=== PATIENT | male | born 1935 | race Caucasian/White ===

== ENCOUNTER 2016-07-24 08:05 | Outpatient (CLI) | payer MEDICARE, BC | END 2016-07-24 08:06 | disposition home or self-care (01) | DX: E78.5 Hyperlipidemia, unspecified (principal); R73.9 Hyperglycemia, unspecified; Z12.5 Encounter for screening for malignant neoplasm of prostate | CPT/HCPCS: 36415; 80053; 80061; G0103 ==

== ENCOUNTER 2016-12-09 13:55 | Outpatient (CLI) | payer MEDICARE, BC | END 2016-12-09 13:56 | disposition home or self-care (01) | LOC: DI 13:55 | PROVIDERS: ATTEND Family Medicine | DX: R00.1 Bradycardia, unspecified (principal); I51.7 Cardiomegaly; I77.819 Aortic ectasia, unspecified site | CPT/HCPCS: 93306 ==

== ENCOUNTER 2016-12-28 10:55 | Outpatient (CLI) | payer MEDICARE, BC ==
[2016-12-28 11:39] LABS: CREATININE 0.8 mg/dL (0.6-1.2)
[2016-12-28] MEDS ORDERED: IOPAMIDOL-300 100 ML VIAL IVP ONE (12:16)
--- NOTE | 2016-12-28 13:26 | CT Report ---
CT OF CHEST ANGIOGRAM AORTA: 12/28/2016 CLINICAL INDICATION: Abnormal aorta on echocardiography. TECHNIQUE: Axial CT images of the chest were obtained with 100 mL of Isovue-300 intravenously. Sagitt al and coronal 3D reconstructions were performed. FINDINGS: The heart and great vessels demonstrate atherosclerotic calcification. There is mild ectas ia of the ascending thoracic aorta. The aorta at the sinotubular junction measures 3.3 x 3.2 cm. The ascending aorta at the level of the main pulmonary artery measures 4.4 x 4.0 cm. The thoracic aorta a t the arch measures 3.1 x 2.9 cm. The descending thoracic aorta at the level of the main pulmonary ar keshawn measures 3.6 x 3.1 cm. No hilar or mediastinal lymphadenopathy is present. There is a moderate h iatal hernia. The lungs demonstrate mild dependent atelectasis. There is a noncalcified 4 mm nodule i n the right middle lobe (lung windows axial image 88). No effusion or pneumothorax is present. Limite d evaluation of upper abdominal structures demonstrates normal adrenal glands. The osseous structures demonstrate degenerative changes. IMPRESSION: MILD ECTASIA OF THE THORACIC AORTA, WITHOUT MACI ANEURYSMAL DILATATION. MODERATE HIATAL HERNIA. A 4 MM NODULE IN THE RIGHT MIDDLE LOBE. In accordance with CT protocol optimization, one or more of the following dose reduction techniques w ere utilized for this exam: automated exposure control, adjustment of mA and/or KV based on patient size, or use of iterative reconstructive technique. JOB #: [id number] EXT JOB #:[id number]
== END 2016-12-28 10:56 | disposition home or self-care (01) ==
LOC: LAB 10:55
PROVIDERS: ATTEND Family Medicine
DX: I77.810 Thoracic aortic ectasia (principal); K44.9 Diaphragmatic hernia without obstruction or gangrene; R91.1 Solitary pulmonary nodule
CPT/HCPCS: 36415; 71275; 80048; Q9967

== ENCOUNTER 2017-10-26 12:00 | Outpatient (CLI) | payer MEDICARE, BC ==
--- NOTE | 2017-10-26 14:28 | CT Report ---
CT CHEST WITHOUT CONTRAST: 10/26/2017 CLINICAL INDICATION: Followup pulmonary nodule. COMPARISON: 12/28/2016. TECHNIQUE: Axial CT images of the chest were obtained without intravenous contrast. FINDINGS: The heart and great vessels again demonstrate atherosclerotic calcifications. No hilar or mediastinal lymphadenopathy is appreciated. Moderate hiatal hernia is stable. The 4 mm nodule in the lateral right middle lobe is unchanged (axial image 38). No new pulmonary nodule or mass lesion is seen. No effusion or pneumothorax is present. Osseous structures demonstrate degenerative changes. Limited evaluation of upper abdominal structures demonstrates normal adrenal glands. IMPRESSION: STABLE 4 MM NODULE IN THE LATERAL RIGHT MIDDLE LOBE. CT DOSE REDUCTION STATEMENT In accordance with CT protocol optimization, one or more of the following dose reduction techniques were utilized for this exam: automated exposure control, adjustment of mA and/or KV based on patient size, or use of iterative reconstructive technique. TD: 10/26/2017 14:26
== END 2017-10-26 12:01 | disposition home or self-care (01) ==
LOC: DI 12:00
PROVIDERS: ATTEND Family Medicine
DX: R91.1 Solitary pulmonary nodule (principal)
CPT/HCPCS: 71250

== ENCOUNTER 2017-11-02 09:40 | Outpatient (CLI) | payer MEDICARE, BC ==
[2017-11-02 13:19] LABS: ALBUMIN/GLOBULIN RATIO 1.5 (1.0-2.2); BILIRUBIN,TOTAL 0.7 mg/dL (0.2-1.0); CALCIUM 8.8 mg/dL (8.5-10.3); CREATININE 0.5 mg/dL (0.6-1.2); TOTAL PROTEIN 6.6 g/dL (6.7-8.2)
== END 2017-11-02 09:41 | disposition home or self-care (01) ==
LOC: LAB.WCP 09:40
PROVIDERS: ATTEND Family Medicine
DX: E78.5 Hyperlipidemia, unspecified (principal)
CPT/HCPCS: 36415; 80053

== ENCOUNTER 2017-11-18 09:33 | Outpatient (CLI) | payer MEDICARE, BC ==
[2017-11-18 13:33] LABS: CALCIUM 8.8 mg/dL (8.5-10.3); CREATININE 0.8 mg/dL (0.6-1.2)
== END 2017-11-18 09:34 | disposition home or self-care (01) ==
LOC: LAB.WCP 09:33
PROVIDERS: ATTEND Family Medicine
DX: Z79.899 Other long term (current) drug therapy (principal)
CPT/HCPCS: 36415; 80048

== ENCOUNTER 2017-12-28 08:00 | Outpatient (CLI) | payer MEDICARE, BC ==
[2017-12-28 13:11] LABS: BASOPHILS % (AUTO) 0.4 %; EOSINOPHILS # (AUTO) 0.1 10^3/uL (0.0-0.7); EOSINOPHILS % (AUTO) 1.7 %; HGB - HEMOGLOBIN 13.5 g/dL (14.0-18.0); LYMPHOCYTES # (AUTO) 1.4 10^3/uL (1.5-3.5); LYMPHOCYTES % (AUTO) 27.8 %; MEAN CORPUSCULAR HEMOGLOBIN 31.8 pg (27.0-31.0); MEAN CORPUSCULAR HGB CONC 34.2 g/dL (32.0-36.0); MEAN PLATELET VOLUME 7.8 fL (7.4-11.4); MONOCYTES # (AUTO) 0.4 10^3/uL (0.0-1.0); MONOCYTES % (AUTO) 8.6 %; NEUTROPHILS # (AUTO) 3.2 10^3/uL (1.5-6.6); NEUTROPHILS % (AUTO) 61.5 %; PLT - PLATELET COUNT 224 10^3/uL (130-450); RED BLOOD COUNT 4.25 10^6/uL (4.70-6.10); RED CELL DISTRIBUTION WIDTH 14.8 % (12.0-15.0); WHITE BLOOD COUNT 5.2 x10^3/uL (4.8-10.8)
[2017-12-28 13:26] LABS: ALBUMIN 3.6 g/dL (3.2-5.5); ALBUMIN/GLOBULIN RATIO 1.2 (1.0-2.2); ALKALINE PHOSPHATASE 55 IU/L (42-121); ALT ALANINE AMINOTRANSFERASE 16 IU/L (10-60); AST ASPARTATE AMINOTRANSFERASE 21 IU/L (10-42); BUN - BLOOD UREA NITROGEN 14 mg/dL (6-20); CARBON DIOXIDE - CO2 25 mmol/L (21-32); CHLORIDE 108 mmol/L (101-111); CREATININE 0.6 mg/dL (0.6-1.2); GFR - MDRD 130 (>89); GLUCOSE 106 mg/dL (70-100); SODIUM 139 mmol/L (135-145); TOTAL PROTEIN 6.6 g/dL (6.7-8.2)
[2017-12-28 13:40] LABS: HB2 TOTAL 14.6 g/dL; HEMOGLOBIN A1C 0.59 g/dL; HEMOGLOBIN A1C % 5.8 % (4.6-6.2)
[2017-12-28 13:56] LABS: CRP - C-REACTIVE PROTEIN < 1.0 mg/dL (0-1.0)
== END 2017-12-28 08:01 ==
LOC: LAB.WCP 08:00
PROVIDERS: ATTEND Family Medicine
DX: R03.0 Elevated blood-pressure reading, without diagnosis of hypertension (principal); Z79.899 Other long term (current) drug therapy; R00.1 Bradycardia, unspecified; R73.9 Hyperglycemia, unspecified; E78.5 Hyperlipidemia, unspecified; M17.9 Osteoarthritis of knee, unspecified; N40.1 Benign prostatic hyperplasia with lower urinary tract symptoms; R60.0 Localized edema; K21.9 Gastro-esophageal reflux disease without esophagitis
CPT/HCPCS: 36415; 80053; 83036; 85025; 85651; 86140

== ENCOUNTER 2018-01-03 08:13 | Outpatient (CLI) | payer MEDICARE, BC | END 2018-01-03 08:14 | disposition home or self-care (01) | LOC: DI 08:13 | PROVIDERS: ATTEND Family Medicine | DX: I77.810 Thoracic aortic ectasia (principal); R60.0 Localized edema | CPT/HCPCS: 93306 ==

== ENCOUNTER 2018-07-15 08:58 | Outpatient (CLI) | payer MEDICARE, BC ==
[2018-07-15 12:52] LABS: BASOPHILS % (AUTO) 0.4 %; EOSINOPHILS # (AUTO) 0.2 10^3/uL (0.0-0.7); EOSINOPHILS % (AUTO) 2.9 %; HGB - HEMOGLOBIN 12.1 g/dL (14.0-18.0); LYMPHOCYTES # (AUTO) 1.6 10^3/uL (1.5-3.5); LYMPHOCYTES % (AUTO) 22.8 %; MEAN CORPUSCULAR HEMOGLOBIN 28.5 pg (27.0-31.0); MEAN CORPUSCULAR HGB CONC 33.4 g/dL (32.0-36.0); MEAN CORPUSCULAR VOLUME 85.4 fL (80.0-94.0); MEAN PLATELET VOLUME 7.4 fL (7.4-11.4); MONOCYTES # (AUTO) 0.6 10^3/uL (0.0-1.0); MONOCYTES % (AUTO) 8.8 %; NEUTROPHILS # (AUTO) 4.7 10^3/uL (1.5-6.6); NEUTROPHILS % (AUTO) 65.1 %; PLT - PLATELET COUNT 301 10^3/uL (130-450); RED BLOOD COUNT 4.25 10^6/uL (4.70-6.10); RED CELL DISTRIBUTION WIDTH 15.4 % (12.0-15.0); WHITE BLOOD COUNT 7.2 x10^3/uL (4.8-10.8)
[2018-07-15 13:03] LABS: ALBUMIN 3.5 g/dL (3.2-5.5); ALBUMIN/GLOBULIN RATIO 1.2 (1.0-2.2); ALKALINE PHOSPHATASE 81 IU/L (42-121); ALT ALANINE AMINOTRANSFERASE 11 IU/L (10-60); AST ASPARTATE AMINOTRANSFERASE 17 IU/L (10-42); BILIRUBIN,TOTAL 0.5 mg/dL (0.2-1.0); BUN - BLOOD UREA NITROGEN 13 mg/dL (6-20); CALCIUM 8.6 mg/dL (8.5-10.3); CARBON DIOXIDE - CO2 25 mmol/L (21-32); CHLORIDE 105 mmol/L (101-111); CHOL/HDL RATIO 2.7 (<5.0); CHOLESTEROL 147 mg/dL; CREATININE 0.5 mg/dL (0.6-1.2); GFR - MDRD 160 (>89); GLUCOSE 114 mg/dL (70-100); HDL CHOLESTEROL 54 mg/dL; LDL CHOLESTEROL,CALCULATED 83 mg/dL; LDL/HDL RATIO 1.5 (<3.6); SODIUM 137 mmol/L (135-145); TOTAL PROTEIN 6.5 g/dL (6.7-8.2); VLDL CHOLESTEROL 10 mg/dL
[2018-07-15 13:05] LABS: HB2 TOTAL 12.6 g/dL; HEMOGLOBIN A1C 0.58 g/dL; HEMOGLOBIN A1C % 6.4 % (4.6-6.2)
== END 2018-07-15 23:59 | disposition home or self-care (01) ==
LOC: LAB.WCP 08:58
PROVIDERS: ATTEND Family Medicine
DX: R73.9 Hyperglycemia, unspecified (principal); E78.5 Hyperlipidemia, unspecified; Z79.899 Other long term (current) drug therapy; R00.1 Bradycardia, unspecified; R03.0 Elevated blood-pressure reading, without diagnosis of hypertension
CPT/HCPCS: 36415; 80053; 80061; 83036; 83721; 84443; 85025

== ENCOUNTER 2018-07-21 15:12 | Outpatient (CLI) | payer MEDICARE, BC ==
[2018-07-21 19:20] LABS: MEAN RETIC VALUE 112.4; RED BLOOD COUNT 4.25 10^6/uL (4.70-6.10)
[2018-07-21 19:50] LABS: % IRON SATURATION 6 % (20-50); IRON 19 ug/dL (45-182); TOTAL IRON BINDING CAPACITY 344 ug/dL (250-450); TRANSFERRIN 246 mg/dL (180-329)
== END 2018-07-21 23:59 | disposition home or self-care (01) ==
LOC: LAB.WCP 15:12
PROVIDERS: ATTEND Family Medicine
DX: D64.9 Anemia, unspecified (principal)
CPT/HCPCS: 36415; 82728; 83540; 83615; 84466; 85044

== ENCOUNTER 2019-01-24 08:00 | Outpatient (CLI) | payer MEDICARE, BC ==
[2019-01-24 12:54] LABS: % IRON SATURATION 31 % (20-50); IRON 111 ug/dL (45-182); TOTAL IRON BINDING CAPACITY 356 ug/dL (250-450); TRANSFERRIN 254 mg/dL (180-329)
== END 2019-01-24 23:59 | disposition home or self-care (01) ==
LOC: LAB.WCP 08:00
PROVIDERS: ATTEND Family Medicine
DX: D50.9 Iron deficiency anemia, unspecified (principal)
CPT/HCPCS: 36415; 82728; 83540; 84466

== ENCOUNTER 2019-08-24 08:00 | Outpatient (CLI) | payer MEDICARE, BC ==
[2019-08-24 12:33] LABS: BASOPHILS % (AUTO) 0.6 %; EOSINOPHILS # (AUTO) 0.1 10^3/uL (0.0-0.7); EOSINOPHILS % (AUTO) 1.3 %; HGB - HEMOGLOBIN 14.3 g/dL (14.0-18.0); LYMPHOCYTES # (AUTO) 1.5 10^3/uL (1.5-3.5); LYMPHOCYTES % (AUTO) 27.3 %; MEAN CORPUSCULAR HEMOGLOBIN 31.2 pg (27.0-31.0); MEAN CORPUSCULAR HGB CONC 33.4 g/dL (32.0-36.0); MEAN CORPUSCULAR VOLUME 93.4 fL (80.0-94.0); MONOCYTES # (AUTO) 0.6 10^3/uL (0.0-1.0); MONOCYTES % (AUTO) 10.1 %; NEUTROPHILS # (AUTO) 3.3 10^3/uL (1.5-6.6); NEUTROPHILS % (AUTO) 60.3 %; PLT - PLATELET COUNT 219 10^3/uL (130-450); RED BLOOD COUNT 4.58 10^6/uL (4.70-6.10); RED CELL DISTRIBUTION WIDTH 13.9 % (12.0-15.0); WHITE BLOOD COUNT 5.5 x10^3/uL (4.8-10.8)
[2019-08-24 13:14] LABS: HEMOGLOBIN A1C 0.61 g/dL; HEMOGLOBIN A1C % 6.1 % (4.6-6.2)
[2019-08-24 13:20] LABS: ALBUMIN/GLOBULIN RATIO 1.5 (1.0-2.2); ALKALINE PHOSPHATASE 40 IU/L (42-121); ALT ALANINE AMINOTRANSFERASE 17 IU/L (10-60); AST ASPARTATE AMINOTRANSFERASE 23 IU/L (10-42); BUN - BLOOD UREA NITROGEN 19 mg/dL (6-20); CALCIUM 8.9 mg/dL (8.5-10.3); CARBON DIOXIDE - CO2 24 mmol/L (21-32); CHLORIDE 106 mmol/L (101-111); CHOL/HDL RATIO 2.8 (<5.0); CHOLESTEROL 147 mg/dL; CREATININE 0.7 mg/dL (0.6-1.2); GFR - MDRD 108 (>89); GLUCOSE 110 mg/dL (70-100); HDL CHOLESTEROL 53 mg/dL; LDL CHOLESTEROL,CALCULATED 85 mg/dL; LDL/HDL RATIO 1.6 (<3.6); SODIUM 139 mmol/L (135-145); TOTAL PROTEIN 6.6 g/dL (6.7-8.2); VLDL CHOLESTEROL 9 mg/dL
== END 2019-08-24 23:59 | disposition home or self-care (01) ==
LOC: LAB.WCP 08:00
PROVIDERS: ATTEND Family Medicine
DX: E78.5 Hyperlipidemia, unspecified (principal); R73.9 Hyperglycemia, unspecified; Z12.5 Encounter for screening for malignant neoplasm of prostate; D50.9 Iron deficiency anemia, unspecified
CPT/HCPCS: 36415; 80053; 80061; 83036; 85025; G0103; 83721; 84153

== ENCOUNTER 2020-03-28 08:00 | Outpatient (CLI) | payer MEDICARE, BC ==
[2020-03-28 19:05] LABS: BILIRUBIN,URINE NEGATIVE (NEGATIVE); GLUCOSE, URINE (UA) NEGATIVE (NEGATIVE); KETONES,URINE (UA) NEGATIVE (NEGATIVE); LEUKOCYTE ESTERASE, URINE NEGATIVE (NEGATIVE); NITRITE,URINE NEGATIVE (NEGATIVE); OCCULT BLOOD,URINE NEGATIVE (NEGATIVE); PROTEIN,URINE NEGATIVE (NEGATIVE); UROBILINOGEN,URINE 0.2 (NORMAL) E.U./dL (NORMAL)
[2020-03-28 19:20] LABS: CLARITY,URINE HAZY (CLEAR)
[2020-03-28 19:21] LABS: AMORPHOUS SEDIMENT,UR Few /LPF; BACTERIA,URINE None Seen /HPF (None Seen); RBC,URINE None Seen /HPF (0-5); SQUAMOUS EPITHELIAL CELL,UR RARE Squamous (<= Few)
== END 2020-03-28 23:59 | disposition home or self-care (01) ==
LOC: LAB.R 08:00
PROVIDERS: ATTEND Family Medicine
DX: N39.46 Mixed incontinence (principal)
CPT/HCPCS: 81001; 87086

== ENCOUNTER 2020-04-12 15:07 | Outpatient (CLI) | payer MEDICARE, BC ==
--- NOTE | 2020-04-12 16:48 | Ultrasound Report ---
PROCEDURE: Retroperitoneal INDICATIONS: URINARY INCONTINENCE TECHNIQUE: Real-time scanning was performed of the retroperitoneal organs, with image documentation. COMPARISON: None. FINDINGS: Kidneys: Kidneys are normal in size. Right kidney measures 13.0 cm long; left kidney measures 13.1 cm long. Right renal cortical thickness is 1.4 cm; left renal cortical thickness is 1.3 cm. No sara d masses, hydronephrosis, or nephrolithiasis. Multiple bilateral renal cysts. These measure up to 3. 5 x 2.2 x 2.1 cm in the interpolar region of the right kidney and up to 1.7 x 1.4 x 1.2 cm in the inf erior pole the left kidney. 8mm calcification seen in the right kidney Prostate enlarged. Prevoid bladder volume measures 172 cc. Postvoid residual measures 63 cc. Both ure teral jets are sonographically visualized. IMPRESSION: Possible right nephrolithiasis measuring 8mm, versus dystrophic calcification. Multiple bilateral renal cysts No hydronephrosis Postvoid residual measures 63 mL. Reviewed by: Chi Whelan MD on 04/12/2020 4:47 PM PDT Approved by: Chi Whelan MD on 04/12/2020 4:47 PM PDT Station ID: [id number]
== END 2020-04-12 15:08 | disposition home or self-care (01) ==
LOC: DI 15:07
PROVIDERS: ATTEND Family Medicine
DX: N28.1 Cyst of kidney, acquired (principal); R93.421 Abnormal radiologic findings on diagnostic imaging of right kidney
CPT/HCPCS: 76770

== ENCOUNTER 2020-06-25 08:00 | Outpatient (CLI) | payer MEDICARE, BC ==
[2020-06-25 18:35] LABS: BASOPHILS % (AUTO) 0.3 %; EOSINOPHILS # (AUTO) 0.1 10^3/uL (0.0-0.7); EOSINOPHILS % (AUTO) 0.9 %; HGB - HEMOGLOBIN 12.7 g/dL (14.0-18.0); LYMPHOCYTES # (AUTO) 1.4 10^3/uL (1.5-3.5); LYMPHOCYTES % (AUTO) 24.7 %; MEAN CORPUSCULAR HEMOGLOBIN 30.4 pg (27.0-31.0); MEAN PLATELET VOLUME 9.5 fL (7.4-11.4); MONOCYTES # (AUTO) 0.6 10^3/uL (0.0-1.0); MONOCYTES % (AUTO) 10.9 %; NEUTROPHILS # (AUTO) 3.6 10^3/uL (1.5-6.6); NEUTROPHILS % (AUTO) 62.7 %; PLT - PLATELET COUNT 317 10^3/uL (130-450); RED BLOOD COUNT 4.18 10^6/uL (4.70-6.10); RED CELL DISTRIBUTION WIDTH 14.2 % (12.0-15.0); WHITE BLOOD COUNT 5.8 x10^3/uL (4.8-10.8)
[2020-06-25 18:50] LABS: ALBUMIN 3.5 g/dL (3.2-5.5); ALBUMIN/GLOBULIN RATIO 1.3 (1.0-2.2); ALKALINE PHOSPHATASE 42 IU/L (42-121); ALT ALANINE AMINOTRANSFERASE 18 IU/L (10-60); AST ASPARTATE AMINOTRANSFERASE 19 IU/L (10-42); BILIRUBIN,TOTAL 0.8 mg/dL (0.2-1.0); BUN - BLOOD UREA NITROGEN 15 mg/dL (6-20); CALCIUM 8.7 mg/dL (8.5-10.3); CARBON DIOXIDE - CO2 25 mmol/L (21-32); CHLORIDE 106 mmol/L (101-111); CHOL/HDL RATIO 3.4 (<5.0); CHOLESTEROL 147 mg/dL; CREATININE 0.7 mg/dL (0.6-1.2); GLUCOSE 116 mg/dL (70-100); HDL CHOLESTEROL 43 mg/dL; LDL CHOLESTEROL,CALCULATED 87 mg/dL; SODIUM 138 mmol/L (135-145); TOTAL PROTEIN 6.3 g/dL (6.7-8.2); VLDL CHOLESTEROL 17 mg/dL
[2020-06-25 20:39] LABS: HEMOGLOBIN A1c% 6.4 % (4.27-6.07)
== END 2020-06-25 23:59 | disposition home or self-care (01) ==
LOC: LAB.WCP 08:00
PROVIDERS: ATTEND Family Medicine
DX: R73.9 Hyperglycemia, unspecified (principal); E78.5 Hyperlipidemia, unspecified; K21.9 Gastro-esophageal reflux disease without esophagitis
CPT/HCPCS: 36415; 80053; 80061; 83036; 83721; 85025